=== PATIENT | male | born 1960 | race Caucasian/White ===

== ENCOUNTER → 2016-09-15 | Outpatient (CLI) | payer MEDICARE ==
[2016-09-17 07:07] LABS: CYCLIC CITRUL PEPTIDE IGG/A AB 3 units (0-19)
== END ==
LOC: OD 09:15
PROVIDERS: ATTEND Orthopaedic Surgery
DX: M79.642 Pain in left hand (principal); R22.32 Localized swelling, mass and lump, left upper limb; I73.00 Raynaud's syndrome without gangrene
CPT/HCPCS: 36415; 85652; 86038; 86140; 86200; 86235; 86430

== ENCOUNTER → 2016-09-17 | Outpatient (CLI) | payer MEDICARE | LOC: RAD 07:28 | PROVIDERS: ATTEND Orthopaedic Surgery | DX: M79.645 Pain in left finger(s) (principal); R22.32 Localized swelling, mass and lump, left upper limb; I73.00 Raynaud's syndrome without gangrene | CPT/HCPCS: 82565; 73220; A9576 ==

== ENCOUNTER 2017-07-04 08:46 | Emergency (ER) | payer MEDICARE ==
--- NOTE | 2017-07-04 10:14 | ER Document Report ---
HPI - HPI Patient complains to provider of: Cyst on buttocks Onset: Other Onset/Duration: Gradual Quality of pain: Throbbing Severity: Moderate Pain Level: 4 Context: Patient states he has a cyst on his left buttock for several days. Complains of area being painful, no drainage. Has had this in the past. Associated Symptoms: None Similar symptoms previously: Yes Recently seen / treated by doctor: No - ROS ROS below otherwise negative: Yes Systems Reviewed and Negative: Yes All other systems reviewed and negative - CONSTITUTIONAL Constitutional: DENIES: Fever - EENT EENT: DENIES: Congestion - NEURO Neurology: DENIES: Headache - CARDIOVASCULAR Cardiovascular: DENIES: Chest pain - RESPIRATORY Respiratory: DENIES: Trouble Breathing - GASTROINTESTINAL Gastrointestinal: DENIES: Abdominal Pain - URINARY Urinary: DENIES: Dysuria - MUSCULOSKELETAL Musculoskeletal: DENIES: Extremity pain - DERM Skin Color: Erythema Skin Problems: Rash - Cyst on left buttock Past Medical History - General Information source: Patient - Social History Smoking Status: Current Every Day Smoker Cigarette use (# per day): Yes Frequency of alcohol use: Occasional Drug Abuse: None Lives with: Spouse/Significant other Family History: Reviewed & Not Pertinent - Past Medical History Cardiac Medical History: Reports: Hx Heart Attack, Hx Hypercholesterolemia, Hx Hypertension Pulmonary Medical History: Reports: Hx Asthma, Hx Bronchitis, Hx COPD, Hx Pneumonia, Hx Tuberculosis - 25 years ago Past Surgical History: Reports: Hx Coronary Artery Bypass Graft, Hx Open Heart Surgery, Hx Orthopedic Surgery - low back surgery - Immunizations Hx Diphtheria, Pertussis, Tetanus Vaccination: Yes Vertical Provider Document - CONSTITUTIONAL Agree With Documented VS: Yes Exam Limitations: No Limitations General Appearance: WD/WN, No Apparent Distress - INFECTION CONTROL TRAVEL OUTSIDE OF THE [place] IN LAST 30 DAYS: No - HEENT HEENT: Atraumatic, Normocephalic - RESPIRATORY Respiratory: Breath Sounds Normal, No Respiratory Distress O2 Sat by Pulse Oximetry: 96 - CARDIOVASCULAR Cardiovascular: Regular Rate, Regular Rhythm - GI/ABDOMEN Gastrointestinal: Abdomen Soft, Abdomen Non-Tender, Normal Bowel Sounds - MUSCULOSKELETAL/EXTREMETIES Musculoskeletal/Extremeties: MAEW - NEURO Level of Consciousness: Awake, Alert, Appropriate - DERM Integumentary: Warm, Dry, Abscess - 2 inch red circular area with small fluctuant area in center to left buttock. Course - Vital Signs Vital signs: Temp Pulse Resp BP Pulse Ox 98.5 F 92 16 123/84 96 07/04/17 08:57 07/04/17 08:57 07/04/17 08:57 07/04/17 08:57 07/04/17 08:57 Procedures - Incision and Drainage Left Buttock Type: Simple Anesthetic type: 1% Lidocaine mL's of anesthetic: 4 Blade size: 11 I&D procedure: Shurclens applied, Iodoform packing placed, Sterile dressing applied Incision Method: Incision made by scalpel Amount/type of drainage: Purulent drainage Notes: 07/04/17 11:01 Small amount of drainage expressed from wound. Packed with iodoform and sterile dressing applied. Patient tolerated procedure well Discharge - Discharge Clinical Impression: Abscess of left buttock Condition: Good Disposition: HOME, SELF-CARE Instructions: Abscess ([facility]) Additional Instructions: Warm compresses to area Change dressing as needed May remove packing in 24 hours Keep wound clean and dry Finish all antibiotics as prescribed ibuprofen or Tylenol as needed for pain Follow-up with your primary care doctor next week for recheck Return as needed Prescriptions: Sulfamethoxazole/Trimethoprim [Bactrim Ds Tablet] 1 each PO BID #20 tablet
[2017-07-04 11:13] VITALS: BP 128/83
== END 2017-07-04 11:10 | disposition home or self-care (01) ==
LOC: ER 08:46
PROC: 0H98XZZ Drainage of Buttock Skin, External Approach (ICD-10-PCS; principal; 2017-07-04)
DX: L02.31 Cutaneous abscess of buttock (principal); F17.210 Nicotine dependence, cigarettes, uncomplicated
CPT/HCPCS: 99283; 87070; 87205; 87075; 10060; A6266

== ENCOUNTER 2020-03-17 12:40 | Emergency (ER) | payer MEDICARE, MEDICAID ==
--- NOTE | 2020-03-17 12:52 | ER Document Report ---
ED Hand/Wrist Injury - General Chief Complaint: Hand Pain Stated Complaint: LEFT THUMB PAIN,SWELLING Time Seen by Provider: 03/17/20 12:45 Primary Care Provider: CHAZ CARRILLO MD [Primary Care Provider] - Follow up in 1 week ROSA PATEL DO [ACTIVE STAFF] - Follow up in 3-5 days TRAVEL OUTSIDE OF THE [place] IN LAST 30 DAYS: No - HPI Patient complains to provider of: left thumb pain Notes: 59 year old male to the ED with C/O left thumb pain that began three days ago and has been persistant. Denies injury. Denies fever. He is right hand dominant. Has been taking Aleve with little benefit. - Related Data Allergies/Adverse Reactions: Penicillins Allergy (Verified 07/04/17 08:49) nicotine patch Allergy (Uncoded 03/17/20 12:48) Past Medical History - General Information source: Patient - Social History Smoking Status: Current Every Day Smoker Frequency of alcohol use: Occasional Drug Abuse: None Family History: Reviewed & Not Pertinent - Past Medical History Cardiac Medical History: Reports: Hx Heart Attack, Hx Hypercholesterolemia, Hx Hypertension Pulmonary Medical History: Reports: Hx Asthma, Hx Bronchitis, Hx COPD, Hx Pneumonia, Hx Tuberculosis - 25 years ago Renal/ Medical History: Denies: Hx Peritoneal Dialysis Past Surgical History: Reports: Hx Coronary Artery Bypass Graft, Hx Open Heart Surgery, Hx Orthopedic Surgery - low back surgery. Denies: Hx Pacemaker - Immunizations Hx Diphtheria, Pertussis, Tetanus Vaccination: Yes Review of Systems - Review of Systems Constitutional: denies: Chills, Fever EENT: No symptoms reported Cardiovascular: denies: Chest pain, Syncope, Dizziness, Lightheaded Respiratory: denies: Cough, Short of breath Gastrointestinal: denies: Abdominal pain, Diarrhea, Nausea, Vomiting Genitourinary: No symptoms reported Musculoskeletal: Joint pain - left thumb pain Skin: denies: Change in color, Lumps, Rash Neurological/Psychological: No symptoms reported. denies: Weakness, Numbness -: Yes All other systems reviewed and negative Physical Exam - Vital signs Vitals: Temp Pulse Resp BP Pulse Ox 97.7 F 90 20 136/84 H 99 03/17/20 12:50 03/17/20 12:50 03/17/20 12:50 03/17/20 12:50 03/17/20 12:50 Interpretation: Normal - General General appearance: Appears well, Alert In distress: None - HEENT Head: Normocephalic, Atraumatic Eyes: Normal Pupils: PERRL - Respiratory Respiratory status: No respiratory distress Chest status: Nontender. No: Accessory muscle use Breath sounds: Normal. No: Rales, Rhonchi, Wheezing Chest palpation: Normal - Cardiovascular Rhythm: Regular Heart sounds: Normal auscultation Murmur: No - Abdominal Inspection: Normal Distension: No distension Bowel sounds: Normal Tenderness: Nontender Organomegaly: No organomegaly - Extremities Hand: Tender - there is TTP over the left thumb on the flexor aspect without any edema, circumferential erythema. Patient is not stuck in flexion but has increased pain with extension of the left thumb. opposition intact. 5/5 strength in all fingers against resistance in testing of both flexor tendons and extensor tendon. Cap refill is less than 2 sec. no snuff box tenderness. - Neurological Neuro grossly intact: Yes Cognition: Normal Orientation: AAOx4 Abi Coma Scale Eye Opening: Spontaneous Dunn Coma Scale Verbal: Oriented Abi Coma Scale Motor: Obeys Commands Dunn Coma Scale Total: 15 Speech: Normal Motor strength normal: LUE, RUE, LLE, RLE Sensory: Normal - Psychological Associated symptoms: Normal affect, Normal mood - Skin Skin Temperature: Warm Skin Moisture: Dry Skin Color: Normal Course - Re-evaluation Re-evalutation: 03/17/20 13:45 Impression: left thumb pain, left thumb arthritis. Will place in thumb spica and discharge home with nsaids for pain as well as steroid dose yolanda, will have him follow up with orthopedist. - Vital Signs Vital signs: Temp Pulse Resp BP Pulse Ox 97.7 F 90 20 136/84 H 99 03/17/20 12:50 03/17/20 12:50 03/17/20 12:50 03/17/20 12:50 03/17/20 12:50 Discharge - Discharge Clinical Impression: Pain of left thumb, Osteoarthritis Condition: Stable Disposition: HOME, SELF-CARE Instructions: Arthritis ([facility]) Additional Instructions: Use splint. Return if worse. Ice the Hand. take medicines as prescribed. Follow up with orthopedist without fail. Prescriptions: Methylprednisolone [Medrol Dosepack (4 mg/Tab) 21 Tab/Dosepak] 4 mg PO ASDIR PRN #21 tab.ds.[id number] PRN Reason: Meloxicam [Mobic 7.5 mg Tablet] 7.5 mg PO DAILY #20 tablet Referrals: CHAZ CARRILLO MD [Primary Care Provider] - Follow up in 1 week ROSA PATEL DO [ACTIVE STAFF] - Follow up in 3-5 days
[2020-03-17 12:53] VITALS: BP 136/84
--- NOTE | 2020-03-17 13:15 | RADIOLOGY REPORT (SQ) ---
EXAM DESCRIPTION: HAND LEFT 3 VIEWS IMAGES COMPLETED DATE/TIME: 03/17/2020 12:00 pm REASON FOR STUDY: left hand/thumb pain COMPARISON: None. EXAM PARAMETERS: NUMBER OF VIEWS: Three views. TECHNIQUE: AP, lateral and oblique radiographic images acquired of the left hand. LIMITATIONS: None. FINDINGS: MINERALIZATION: Normal. BONES: No acute fracture or cortical disruption. Mild joint space narrowing with small marginal oste ophytes at the DIP joints of all digits. No significant erosions. JOINTS: No effusions. SOFT TISSUES: No soft tissue swelling. No foreign body. OTHER: No other significant finding. IMPRESSION: No acute fracture or dislocation of the left hand. Mild osteoarthritis at the DIP joint s. TECHNICAL DOCUMENTATION: JOB ID: [id number] 2010 [employer]- All Rights Reserved Reading location - IP/workstation name: [email or web address]
== END 2020-03-17 14:00 | disposition home or self-care (01) ==
LOC: ER 12:40
DX: M19.042 Primary osteoarthritis, left hand (principal); M79.645 Pain in left finger(s); M79.89 Other specified soft tissue disorders; Z79.899 Other long term (current) drug therapy; Z88.0 Allergy status to penicillin; F17.200 Nicotine dependence, unspecified, uncomplicated; I10 Essential (primary) hypertension; J44.9 Chronic obstructive pulmonary disease, unspecified
CPT/HCPCS: 99283

== ENCOUNTER → 2020-04-10 | Outpatient (CLI) | payer MEDICARE, MEDICAID ==
[2020-04-10 11:29] LABS: ABSOLUTE BASOPHILS # (AUTO) 0.1 10^3/uL (0.0-0.2); ABSOLUTE EOSINOPHILS # (AUTO) 0.1 10^3/uL (0.0-0.6); ABSOLUTE LYMPHOCYTES (AUTO) 1.4 10^3/uL (0.5-4.7); ABSOLUTE MONOCYTES (AUTO) 1.1 10^3/uL (0.1-1.4); BASOPHILS % (AUTO) 0.8 % (0-2); EOSINOPHILS % (AUTO) 1.4 % (0-6); HEMATOCRIT 44.8 % (37.9-51.0); HEMOGLOBIN 16.2 g/dL (13.5-17.0); LYMPHOCYTES % (AUTO) 14.1 % (13-45); MEAN CORPUSCULAR HEMOGLOBIN 34.6 pg (27.0-33.4); MEAN CORPUSCULAR HGB CONC 36.2 g/dL (32.0-36.0); MEAN CORPUSCULAR VOLUME 96 fl (80-97); PLATELET COUNT 292 10^3/uL (150-450); RED BLOOD COUNT 4.69 10^6/uL (4.35-5.55); SEGMENTED NEUTROPHILS % (AUTO) 72.7 % (42-78); TOTAL CELLS COUNTED % (AUTO) 100 %; WHITE BLOOD COUNT 9.6 10^3/uL (4.0-10.5)
[2020-04-10 12:09] LABS: URIC ACID 3.3 mg/dL (3.5-8.5)
[2020-04-10 12:12] LABS: ERYTHROCYTE SEDIMENTATION RATE 7 mm/hr (0-20)
[2020-04-10 12:16] LABS: C-REACTIVE PROTEIN < 5.0 mg/L (<10.0)
== END ==
LOC: OD 10:26
PROVIDERS: ATTEND Orthopaedic Surgery
DX: M25.50 Pain in unspecified joint (principal)
CPT/HCPCS: 36415; 84550; 85025; 85652; 86038; 86140; 86200; 86431